=== PATIENT | male | born 1990 | race Caucasian/White ===

== ENCOUNTER 2019-08-31 17:31 | Emergency (ER) | payer OTHER ==
[2019-08-31] MEDS ORDERED: ACETAMINOPHEN TAB 500 MG TAB PO STA (18:02)
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
[2019-08-31] MEDS ORDERED: KETOROLAC 30 MG/ML 1 ML VIAL IM STA (18:58)
--- NOTE | 2019-08-31 19:09 | XR ---
EXAMINATION TYPE: XR thoracic spine complete DATE OF EXAM: 08/31/2019 CLINICAL HISTORY: pain TECHNIQUE: Frontal, lateral, and swimmer's view of thoracic spine are obtained. COMPARISON: None. FINDINGS: Thoracic spine show satisfactory alignment without evidence of acute fracture or dislocatio n. Vertebral body heights are preserved. Disc spaces are well preserved. Visualized ribs are unrem arkable. IMPRESSION: No acute fracture or dislocation is seen in the thoracic spine. ICD 10 NO FRACTURE, INITIAL EVALUATION
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
[2019-08-31 19:43] VITALS: BP 121/79; PULSE 77; RESP 18; TEMP 97.9
== END 2019-08-31 19:39 | disposition home or self-care (01) ==
LOC: EC 17:31
DX: S16.1XXA Strain of muscle, fascia and tendon at neck level, initial encounter (principal); S29.012A Strain of muscle and tendon of back wall of thorax, initial encounter; Z87.891 Personal history of nicotine dependence; V49.9XXA Car occupant (driver) (passenger) injured in unspecified traffic accident, initial encounter; Y92.410 Unspecified street and highway as the place of occurrence of the external cause
CPT/HCPCS: 72072; 72125; 70450; 99284; 96372; J1885